=== PATIENT | male | born 1965 | race Caucasian/White ===

== ENCOUNTER 2020-12-07 07:10 | Day surgery (SDC) | payer MEDICARE, MEDICAID, SELFPAY ==
[~2020-12-07] VITALS: Ht 167.6 cm; Wt 78.0 kg
[2020-12-07] MEDS ORDERED: MIDAZOLAM HCL 5 MG/5 ML VIAL ONE (07:40)
[2020-12-07] MEDS ORDERED: SIMETHICONE 40 MG/0.6 ML ML ONE (07:40)
[2020-12-07] MEDS ORDERED: MEPERIDINE 100 MG INJ. 100 MG/ML VIAL ONE (07:40)
[2020-12-07 10:23] VITALS: BP_SYST 122
[2020-12-07] MEDS ORDERED: DIPHENHYDRAMINE INJ 50 MG/ML VIAL ONE (10:56)
== END 2020-12-07 10:10 | disposition home or self-care (01) ==
LOC: SDS 07:10 → EDSEX 09:00 → SDS 10:10
PROVIDERS: ATTEND Internal Medicine Gastroenterology
DX: R19.5 Other fecal abnormalities (principal); K63.5 Polyp of colon; K57.30 Diverticulosis of large intestine without perforation or abscess without bleeding; Z80.0 Family history of malignant neoplasm of digestive organs; I10 Essential (primary) hypertension; Z68.27 Body mass index [BMI] 27.0-27.9, adult; K64.8 Other hemorrhoids; Z20.822 Contact with and (suspected) exposure to COVID-19; F17.210 Nicotine dependence, cigarettes, uncomplicated; Z79.899 Other long term (current) drug therapy
CPT/HCPCS: 45380; 88305; 99152; 99153; G0378; J1200; J2175; J2250; U0003